=== PATIENT | female | born 1995 | race Two or more races ===

== ENCOUNTER 2017-02-01 23:05 | Emergency (ER) | payer OTHER | END 2017-02-02 02:05 | disposition other institution (70) | LOC: ED 23:05 | DX: Z02.89 Encounter for other administrative examinations (principal); S06.0X0A Concussion without loss of consciousness, initial encounter; S00.81XA Abrasion of other part of head, initial encounter; M25.532 Pain in left wrist; W17.89XA Other fall from one level to another, initial encounter; Y93.89 Activity, other specified; Y99.8 Other external cause status; Y92.89 Other specified places as the place of occurrence of the external cause ==

== ENCOUNTER 2017-02-01 23:05 | Emergency (ER) | payer OTHER ==
[2017-02-02 02:05] VITALS: BP 91/55
== END 2017-02-02 02:05 | disposition other institution (70) ==
LOC: ED 23:05
DX: S06.0X0A Concussion without loss of consciousness, initial encounter (principal); S00.81XA Abrasion of other part of head, initial encounter; M25.532 Pain in left wrist; W17.89XA Other fall from one level to another, initial encounter; Y93.39 Activity, other involving climbing, rappelling and jumping off; Y99.8 Other external cause status; Y92.89 Other specified places as the place of occurrence of the external cause
CPT/HCPCS: 90715